=== PATIENT | female | born 1955 ===

== ENCOUNTER → 2023-03-26 | Outpatient (CLI) | payer OTHER ==
[2023-03-26 11:01] LABS: Albumin 3.7 g/dL (3.4-5.0); Calcium 9.3 mg/dL (8.5-10.1); Potassium 4.5 mmol/L (3.5-5.1)
[2023-03-26 11:07] LABS: BUN/Creatinine Ratio 20.2 (10.0-20.0); Bilirubin, Total 0.7 mg/dL (0.2-1.0); Total Protein 6.9 g/dL (6.4-8.2)
== END | disposition home or self-care (01) ==
LOC: LAB 10:04
PROVIDERS: ATTEND Internal Medicine
DX: E78.5 Hyperlipidemia, unspecified (principal); E03.9 Hypothyroidism, unspecified; E55.9 Vitamin D deficiency, unspecified
CPT/HCPCS: 36415; 80053; 80061; 82306; 82550; 84436; 84443; 84480

== ENCOUNTER 2023-05-27 14:31 | Inpatient (IN) | payer OTHER ==
[~2023-05-27] VITALS: Ht 157.5 cm; Wt 80.0 kg
[2023-05-27 15:00] LABS: Basophils # (auto) 0 10 ^3/uL (0-0.2); Basophils % (auto) 0.6 % (0.0-2.0); Eosinophils # (auto) 0.2 10 ^3/uL (0-0.8); Eosinophils % (auto) 1.9 % (0.0-7.0); Hematocrit 40.8 % (36.0-46.0); Hemoglobin 13.2 g/dL (12.2-16.2); Lymphocytes # (auto) 2.4 10 ^3/uL (0.4-5.4); Mean Corpuscular Hemoglobin 29.5 pg (28.0-32.0); Mean Corpuscular Hgb Conc. 32.4 g/dL (32.0-36.0); Mean Corpuscular Volume 91.1 fL (80.0-100.0); Monocytes # (auto) 0.5 10 ^3/uL (0-1.3); Monocytes % (auto) 6.4 % (0.0-12.0); Neutrophils # (auto) 5.2 10 ^3/uL (1.6-8.6); Neutrophils % (auto) 62.1 % (37.0-80.0); Nucleated Red Blood Cells % 0.1 %; Red Blood Cells 4.47 10^6/uL (4.0-5.20); Red Cell Distribution Width 13.5 % (11.8-14.3); White Blood Cell 8.3 10^3/uL (4.4-10.8)
[2023-05-27] MEDS ORDERED: ASPirin 325 MG TAB PO ONE (15:15)
[2023-05-27 15:21] LABS: Urine Bacteria NONE SEEN /hpf (None Seen); Urine Blood TRACE /uL (Negative); Urine Clarity Clear (Clear); Urine Color Yellow (Yellow); Urine Protein, UAD Negative (Negative); Urine Specific Gravity 1.014 (1.001-1.035); Urine Urobilinogen Normal (Negative); Urine WBC 1 /hpf (0 - 5); Urine pH 7.5 (5.0-8.0)
[2023-05-27 15:28] LABS: Alanine Aminotransferase 31 U/L (7-40); Albumin 4.7 g/dL (3.2-4.8); Alkaline Phosphatase 77 U/L (46-116); Anion Gap 4 (5-15); Aspartate Aminotransferase 27 U/L (13-40); BUN/Creatinine Ratio 17.5 (10.0-20.0); Blood Urea Nitrogen 20 mg/dL (9-23); Calcium 10.3 mg/dL (8.7-10.4); Carbon Dioxide 29 mmol/L (20-30); Chloride 107 mmol/L (98-107); Glucose 112 mg/dL (74-106); Magnesium 2.3 mg/dL (1.6-2.6); Potassium 4.8 mmol/L (3.5-5.1); Sodium 140 mmol/L (136-145)
[2023-05-27 15:29] LABS: Bilirubin, Total 0.7 mg/dL (0.2-1.0); Total Protein 6.8 g/dL (5.7-8.2)
[2023-05-27 17:04] VITALS: PULSE 69; RESP 16; O2SAT 97
[2023-05-27] MEDS ORDERED: ACETAMINOPHEN 325 MG TAB PO PRN (17:45)
[2023-05-27] MEDS ORDERED: NITROGLYCERIN 0.4 MG SL TAB SL PRN (17:45)
[2023-05-27] MEDS ORDERED: ALBUTEROL SULF 2.5 MG/0.5ML(0.5%) NEB SOLN NEB PRN (17:45)
[2023-05-27] MEDS ORDERED: ALBUTEROL SULF 2.5 MG/0.5ML(0.5%) NEB SOLN NEB ONE (17:45)
[2023-05-27] MEDS ORDERED: IPRATROPIUM BROM 0.5 MG/2.5ML INH SOL NEB PRN (17:45)
[2023-05-27] MEDS ORDERED: ONDANSETRON HCL 4 MG/2 ML VIAL IV PRN (17:45)
[2023-05-27] MEDS ORDERED: IPRATROPIUM BROM 0.5 MG/2.5ML INH SOL NEB ONE (17:45)
[2023-05-27] MEDS ORDERED: MORPHINE SULFATE 4 MG/ML SYR/VIAL IV PRN (17:45)
[2023-05-27] MEDS ORDERED: ALBUTEROL SULF 2.5 MG/0.5ML(0.5%) NEB SOLN ONE (17:53)
[2023-05-27] MEDS ORDERED: IPRATROPIUM BROM 0.5 MG/2.5ML INH SOL ONE (17:53)
[2023-05-27] MEDS ORDERED: METO-289 PO (18:16)
[2023-05-27] MEDS ORDERED: LEVO50TA61 PO (18:16)
[2023-05-27] MEDS ORDERED: LITH300T5 PO (18:16)
[2023-05-27] MEDS ORDERED: BUPR-133 PO (18:16)
[2023-05-27 18:20] LABS: INR 0.99 (0.9-1.15); Prothrombin Time 10.4 sec (9.3-11.8)
[2023-05-27 18:28] LABS: Triglycerides 148 mg/dL (< 150)
[2023-05-27 18:29] LABS: LDL Cholesterol 54 mg/dL (< 100)
[2023-05-27 18:30] LABS: Cholesterol 133 mg/dL (< 200); HDL Cholesterol 56 mg/dL (40-59)
[2023-05-27 18:33] LABS: Magnesium 2.2 mg/dL (1.6-2.6)
[2023-05-27 19:06] VITALS: BP 131/73; PULSE 65; RESP 18; TEMP 98.5; O2SAT 97
[2023-05-27 19:20] VITALS: O2SAT 97
[2023-05-27 19:37] LABS: Creatinine, Urine 74.67 mg/dL (30.0-125.0)
[2023-05-27 19:40] VITALS: PULSE 80; RESP 16; O2SAT 97
[2023-05-27] MEDS ORDERED: NITR0.4S29 SL (19:41)
[2023-05-27 21:30] VITALS: BP 137/67; PULSE 73; RESP 18; TEMP 97.8; O2SAT 97
[2023-05-27] MEDS ORDERED: ROSU1TAB12 PO (21:36)
[2023-05-27] MEDS ORDERED: GAB100C PO (21:42)
[2023-05-27] MEDS: ATORVASTATIN 20 MG TAB PO SCH (22:05)
[2023-05-27] MEDS: METOPROLOL TARTRATE 25 MG TAB PO SCH (22:05)
[2023-05-27] MEDS: ENOXAPARIN SOD 80 MG/0.8ML SYRINGE SC SCH (22:06)
[2023-05-28] VITALS (10 sets, daily range): BP systolic 115–139; BP diastolic 60–75; PULSE 58–79; RESP 16–22; TEMP 97.6–98; O2SAT 94–100
[2023-05-28 06:50] LABS: Basophils # (auto) 0 10 ^3/uL (0-0.2); Basophils % (auto) 0.6 % (0.0-2.0); Eosinophils # (auto) 0.1 10 ^3/uL (0-0.8); Eosinophils % (auto) 2.6 % (0.0-7.0); Hematocrit 36.9 % (36.0-46.0); Hemoglobin 12.2 g/dL (12.2-16.2); Lymphocytes # (auto) 1.7 10 ^3/uL (0.4-5.4); Lymphocytes % (auto) 28.6 % (10.0-50.0); Mean Corpuscular Hemoglobin 30.1 pg (28.0-32.0); Mean Corpuscular Hgb Conc. 33.1 g/dL (32.0-36.0); Mean Corpuscular Volume 90.9 fL (80.0-100.0); Monocytes # (auto) 0.5 10 ^3/uL (0-1.3); Monocytes % (auto) 8.4 % (0.0-12.0); Neutrophils # (auto) 3.5 10 ^3/uL (1.6-8.6); Neutrophils % (auto) 59.8 % (37.0-80.0); Nucleated Red Blood Cells % 0.1 %; Red Blood Cells 4.06 10^6/uL (4.0-5.20); Red Cell Distribution Width 13.6 % (11.8-14.3); White Blood Cell 5.8 10^3/uL (4.4-10.8)
[2023-05-28 07:02] LABS: Alanine Aminotransferase 23 U/L (7-40); Alkaline Phosphatase 60 U/L (46-116); Anion Gap 7 (5-15); Aspartate Aminotransferase 20 U/L (13-40); BUN/Creatinine Ratio 14.2 (10.0-20.0); Blood Urea Nitrogen 15 mg/dL (9-23); Calcium 9.5 mg/dL (8.5-10.1); Carbon Dioxide 27 mmol/L (20-30); Chloride 109 mmol/L (98-107); Glucose 93 mg/dL (74-106); Potassium 4.1 mmol/L (3.5-5.1); Sodium 143 mmol/L (136-145)
[2023-05-28 07:03] LABS: Bilirubin, Total 1.1 mg/dL (0.2-1.0); Total Protein 6.2 g/dL (5.7-8.2)
[2023-05-28] MEDS ORDERED: ADENOSINE 65 MG in GIVE UN-DILUTED 0 ML IV ONE (09:30)
[2023-05-28] MEDS: METOPROLOL TARTRATE 25 MG TAB PO SCH ×2 (09:31→21:41)
[2023-05-28] MEDS: ASPirin 81 mg TAB PO SCH (09:31)
[2023-05-28] MEDS: DOCUSATE SOD 100 MG CAP PO SCH ×2 (09:31→17:35)
[2023-05-28] MEDS: ENOXAPARIN SOD 80 MG/0.8ML SYRINGE SC SCH ×2 (10:00→21:36)
[2023-05-28] MEDS ORDERED: LITHIUM CARBONATE 300 MG TAB PO ONE (17:00)
[2023-05-28] MEDS ORDERED: LEVOTHYROXINE SODIUM 50 MCG TAB PO ONE (17:00)
[2023-05-28] MEDS: ATORVASTATIN 20 MG TAB PO SCH (21:35)
[2023-05-28] MEDS: LITHIUM CARBONATE 300 MG TAB PO SCH (21:35)
[2023-05-29] VITALS (7 sets, daily range): BP systolic 101–122; BP diastolic 52–63; PULSE 66–80; RESP 17–22; TEMP 36.9; O2SAT 94–98
[2023-05-29] MEDS ORDERED: LEVOTHYROXINE SODIUM 50 MCG TAB PO SCH (07:00)
[2023-05-29] MEDS: DOCUSATE SOD 100 MG CAP PO SCH (09:38)
[2023-05-29] MEDS: ASPirin 81 mg TAB PO SCH (09:38)
[2023-05-29] MEDS: LITHIUM CARBONATE 300 MG TAB PO SCH (09:38)
[2023-05-29] MEDS: METOPROLOL TARTRATE 25 MG TAB PO SCH (09:40)
[2023-05-29] MEDS: ENOXAPARIN SOD 80 MG/0.8ML SYRINGE SC SCH (09:40)
[2023-05-29] MEDS ORDERED: ESOM40CA39 PO (15:19)
== END 2023-05-29 15:44 | disposition home or self-care (01) | DRG 313 ==
LOC: ER 14:31 → TELE 17:40 → TELE-WESTW 21:24
PROVIDERS: ADMIT Nurse Practitioner Family; ATTEND Internal Medicine
DX: R07.89 Other chest pain (principal); N17.9 Acute kidney failure, unspecified; E03.9 Hypothyroidism, unspecified; E78.5 Hyperlipidemia, unspecified; F31.9 Bipolar disorder, unspecified; R03.0 Elevated blood-pressure reading, without diagnosis of hypertension; I11.9 Hypertensive heart disease without heart failure; I44.7 Left bundle-branch block, unspecified; Z82.3 Family history of stroke; Z83.511 Family history of glaucoma
CPT/HCPCS: 36415; 71046; 78452; 80053; 80061; 80178; 81001; 82570; 83690; 83735; 83880; 84300; 84443; 84484; 85025; 85379; 85610; 93005; 93017; 93306; 94640; 96374; G0378; J0153

== ENCOUNTER → 2023-12-13 | Outpatient (CLI) | payer OTHER ==
[~2023-12-13] MED LIST: BUPR-133 PO; ESOM40CA39 PO; GAB100C PO; LEVO50TA61 PO; LITH300T5 PO; METO-289 PO; ROSU5TAB24 PO
[2023-12-13 08:27] LABS: Alanine Aminotransferase 20 U/L (7-40); Albumin 4.5 g/dL (3.2-4.8); Alkaline Phosphatase 71 U/L (46-116); Anion Gap 9 (5-15); Aspartate Aminotransferase 21 U/L (13-40); BUN/Creatinine Ratio 14.3 (10.0-20.0); Blood Urea Nitrogen 16 mg/dL (9-23); Calcium 10.4 mg/dL (8.5-10.1); Carbon Dioxide 25 mmol/L (20-30); Chloride 109 mmol/L (98-107); Cholesterol 145 mg/dL (< 200); Creatine Kinase IFCC 59 U/L (34-145); Glucose 95 mg/dL (74-106); HDL Cholesterol 59 mg/dL (40-59); LDL Cholesterol 67 mg/dL (< 100); Sodium 143 mmol/L (136-145); Triglycerides 142 mg/dL (< 150)
[2023-12-13 08:28] LABS: Bilirubin, Total 0.8 mg/dL (0.2-1.0); Total Protein 6.9 g/dL (5.7-8.2)
== END | disposition home or self-care (01) ==
LOC: LAB 06:55
PROVIDERS: ATTEND Internal Medicine
DX: E03.9 Hypothyroidism, unspecified (principal); E78.5 Hyperlipidemia, unspecified; E55.9 Vitamin D deficiency, unspecified
CPT/HCPCS: 36415; 80053; 80061; 82306; 82550; 84436; 84443; 84480

== ENCOUNTER → 2024-08-31 | Outpatient (CLI) | payer OTHER ==
[2024-08-31 10:14] LABS: Alanine Aminotransferase 23 U/L (7-40); Albumin 4.5 g/dL (3.2-4.8); Alkaline Phosphatase 66 U/L (46-116); Anion Gap 5 (5-15); Aspartate Aminotransferase 21 U/L (13-40); BUN/Creatinine Ratio 14.5 (10.0-20.0); Blood Urea Nitrogen 16 mg/dL (9-23); Carbon Dioxide 29 mmol/L (20-31); Cholesterol 151 mg/dL (< 200); Glucose 105 mg/dL (74-106); LDL Cholesterol 69 mg/dL (< 100); Potassium 4.6 mmol/L (3.5-5.1); Sodium 143 mmol/L (136-145)
[2024-08-31 10:15] LABS: Bilirubin, Total 1.1 mg/dL (0.2-1.0); Total Protein 6.8 g/dL (5.7-8.2)
[2024-08-31 10:25] LABS: Calcium 10.6 mg/dL (8.7-10.4); Chloride 109 mmol/L (98-107); HDL Cholesterol 63 mg/dL (40-59); Triglycerides 221 mg/dL (< 150)
[2024-08-31 10:44] LABS: Micro Albumin < 3.0 mg/L (<30.0); Microalb/Creat Ratio, Urine < 4.00
== END | disposition home or self-care (01) ==
LOC: LAB 09:18
PROVIDERS: ATTEND Internal Medicine
DX: E78.5 Hyperlipidemia, unspecified (principal); E55.9 Vitamin D deficiency, unspecified; E03.9 Hypothyroidism, unspecified; R73.9 Hyperglycemia, unspecified
CPT/HCPCS: 36415; 80053; 80061; 82043; 82570; 83036; 84436; 84443; 84480

== ENCOUNTER 2025-04-11 06:54 | Outpatient (CLI) | payer OTHER ==
[2025-04-11 07:55] LABS: Microalb/Creat Ratio, Urine 3.0
[2025-04-11 07:57] LABS: Alanine Aminotransferase 33 U/L (7-40); Albumin 4.8 g/dL (3.2-4.8); Alkaline Phosphatase 69 U/L (46-116); Anion Gap 9 (5-15); BUN/Creatinine Ratio 14.0 (10.0-20.0); Blood Urea Nitrogen 16 mg/dL (9-23); Calcium 10.0 mg/dL (8.7-10.4); Carbon Dioxide 28 mmol/L (20-31); Cholesterol 141 mg/dL (< 200); Creatine Kinase IFCC 57 U/L (34-145); Glucose 95 mg/dL (74-106); HDL Cholesterol 55 mg/dL (40-59); Potassium 4.2 mmol/L (3.5-5.1); Sodium 144 mmol/L (136-145); Total Protein 6.9 g/dL (5.7-8.2)
[2025-04-11 07:58] LABS: Bilirubin, Total 1.0 mg/dL (0.2-1.0); Chloride 107 mmol/L (98-107); Triglycerides 161 mg/dL (< 150)
== END 2025-04-11 17:00 | disposition home or self-care (01) ==
LOC: LAB 06:54
PROVIDERS: ATTEND Internal Medicine
DX: E78.5 Hyperlipidemia, unspecified (principal); E03.5 Myxedema coma; E55.9 Vitamin D deficiency, unspecified; R73.9 Hyperglycemia, unspecified; R30.0 Dysuria
CPT/HCPCS: 36415; 80053; 80061; 82043; 82306; 82550; 82570; 83036; 84436; 84443; 84480